=== PATIENT | male | born 2000 | race African-American/Black ===

== ENCOUNTER 2020-06-04 18:41 | Emergency (ER) | payer OTHER ==
[~2020-06-04] VITALS: Ht 182.9 cm; Wt 74.8 kg
[2020-06-04 19:28] LABS: ABSOLUTE NEUTROPHILS 2.2 thou/uL (1.4-8.2); BASOPHILS 0.7 % (0.0-2.0); EOSINOPHILS 0.1 % (0.0-3.0); HEMATOCRIT 41.3 % (42.0-52.0); HEMOGLOBIN 13.2 gm/dL (14.0-18.0); LYMPHOCYTES 23.4 % (24.0-44.0); MCH 24.3 pg (26.0-34.0); MCHC 31.9 g/dL (28.0-37.0); MCV 76.2 fL (80.0-100.0); PLATELET COUNT 174 thou/uL (150-400); POLYS 50.8 % (36.0-66.0); RBC 5.42 mil/uL (4.50-6.00); RDW 14.1 % (10.5-14.5); WBC 4.3 thou/uL (4.0-11.0)
[2020-06-04 19:29] LABS: ANION GAP 10 mmol/L (7-16); BUN 15 mg/dL (7-18); CALCIUM 8.8 mg/dL (8.5-10.1); CHLORIDE 102 mmol/L (98-107); CO2 25 mmol/L (21-32); CREATININE 1.6 mg/dL (0.7-1.3); GLUCOSE 107 mg/dL (74-106); SODIUM 137 mmol/L (136-145)
[2020-06-04 19:39] LABS: LIPASE 112 U/L (73-393); SGOT 28 U/L (15-37); SGPT 32 U/L (16-63); TOTAL BILIRUBIN 0.2 mg/dL (0.2-1.0); TOTAL PROTEIN 7.6 g/dL (6.4-8.2); TROPONIN-I <0.06 ng/mL (<0.06)
[2020-06-04 20:30] VITALS: BP 129/61
--- NOTE | 2020-06-05 06:44 | EKG ---
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
== END 2020-06-04 20:30 | disposition left against medical advice (07) ==
LOC: ER 18:41
PROVIDERS: Emergency Medicine
DX: R10.84 Generalized abdominal pain (principal); J06.9 Acute upper respiratory infection, unspecified; Z91.013 Allergy to seafood